=== PATIENT | male | born 1940 | race Caucasian/White ===

== ENCOUNTER 2019-06-14 23:32 | Inpatient (IN) | payer MEDICARE, OTHER ==
[2019-06-14] MEDS ORDERED: Cefepime 2 GM VIAL ONE (23:58)
[2019-06-14] MEDS ORDERED: Vancomycin 1 GM/200 ML BAG ONE (23:58)
[2019-06-15 00:12] LABS: Hemoglobin 16.6 g/dL (14.0-18.0); Mean Corpuscular HGB CONC 34.8 g/dL (32.0-36.0); Mean Corpuscular Hemoglobin 34.3 pg (27.0-31.0); Mean Corpuscular Volume 98.5 fL (78.0-98.0); Mean Platelet Volume 7.2 fL (7.4-10.4); Platelet Count 157 thou/uL (130-400); RBC Distribution Width 12.8 % (11.5-14.5); Red Blood Cell (RBC) Count 4.83 mill/uL (4.70-6.10); White Blood Cell (WBC) Count 9.8 thou/uL (4.8-10.8)
--- NOTE | 2019-06-15 00:34 | RAD ---
PORTABLE CHEST: 06/14/19 PROVIDED CLINICAL HISTORY: Chest pain. FINDINGS: Comparison 05/17/08. Cardiac silhouette remains enlarged. No focal consolidation, pleural fluid, or pneumothorax apparent. IMPRESSION: No evidence for an acute cardiopulmonary process. POS: [facility]
[2019-06-15 00:39] LABS: ALT (SGPT) 24 U/L (8-55); AST (SGOT) 31 U/L (5-34); Albumin 4.7 g/dL (3.4-4.8); Alkaline Phosphatase 88 U/L (40-110); Anion Gap 15 mmol/L (10-20); BUN (Urea Nitrogen) 18 mg/dL (8.4-25.7); Bilirubin, Total 0.8 mg/dL (0.2-1.2); Calc. Creatinine Clearance 0 mL/min (70-130); Calcium 9.6 mg/dL (7.8-10.44); Carbon Dioxide 25 mmol/L (23-31); Chloride 104 mmol/L (98-107); Estimated GFR-MDRD 66; Globulin 3.5 g/dL (2.4-3.5); Glucose 103 mg/dL (83-110); Protein, Total 8.2 g/dL (5.8-8.1); Sodium 139 mmol/L (136-145)
[2019-06-15 00:48] LABS: Band 6 % (5-11); Eosinophils 2 % (0-10); Lymphocytes 8 % (21-51); MDiff Complete? YES; Monocytes 4 % (0-10); Neutrophil 80 % (42-75); Platelet Morphology Comment Appears Adequate
[2019-06-15] MEDS ORDERED: Acetaminophen 500 MG TAB ONE (00:50)
[2019-06-15 01:20] LABS: Bilirubin Negative (Negative); Blood, Urine Negative (Negative); Clarity Clear (Clear); Glucose, Urine (Dipstick) Normal (Negative); Leukocyte Negative Leu/uL (Negative); Nitrite Negative (Negative); Protein, Urine (Dipstick) 10 mg/dL (Neg-Trace); Urobilinogen Normal mg/dL (Less than 2)
[2019-06-15] MEDS ORDERED: Lorazepam 2 MG/ML VIAL SLOW IVP SCH (03:15)
[2019-06-15] MEDS ORDERED: Lorazepam 2 MG/ML VIAL ONE (03:19)
[2019-06-15 03:46] LABS: Troponin I Less than 0.010 ng/mL (< 0.028)
[2019-06-15] MEDS ORDERED: Senokot S 8.6-50 MG TAB PO PRN (03:58)
[2019-06-15] MEDS ORDERED: HYDROcodone/Acetaminophen 5/325 mg Tablet PO PRN ×2 (03:58)
[2019-06-15] MEDS ORDERED: Ipratropium Oral Inhaler INH PRN (03:58)
[2019-06-15] MEDS ORDERED: Acetaminophen 650 MG Suppository PR PRN (03:58)
[2019-06-15] MEDS ORDERED: Ondansetron ODT 4 MG TAB PO PRN (03:58)
[2019-06-15] MEDS ORDERED: traMADol HCl 50 MG TAB PO PRN (03:58)
[2019-06-15] MEDS ORDERED: Ondansetron PF 4 MG/2 ML Vial IVP PRN (03:58)
[2019-06-15] MEDS ORDERED: PROVENTIL INHALER 6.7 G (200 INHALATIONS) INH PRN (03:58)
[2019-06-15] MEDS ORDERED: Azithromycin 500 MG in Sodium Chloride 0.9% 250 ML 250 ML IVPB SCH (04:30)
[2019-06-15 04:42] VITALS: BMI 32.4
--- NOTE | 2019-06-15 04:47 | HP ---
PRIMARY CARE PHYSICIAN: Dr. Rodriguez. CHIEF COMPLAINT: Shortness of breath. HISTORY OF PRESENT ILLNESS: This is an 78-year-old white male with a history of mild COPD and coronary artery disease with previous stent. The patient reports that he was in his normal state of health without any shortness of breath or other difficulties all yesterday and earlier this morning. He played golf yesterday with some friends, though they maintained their distance from each other. He did fine in the morning and then around noon time, he started to get a little short of breath over the course of the afternoon, and in the evening, he started to have more shortness of breath. He told the ER physician that he also had chest pain, to me he denied chest pain but reported some tightness in his chest. Started having some cough on and off as well, productive of clear sputum. The patient also started to get very anxious and worried that he might be getting COVID-19. He eventually started getting nauseated as well and then vomited at home after dinner and so called EMS. The patient was found to be mildly tachycardic and increased work of breathing by EMS. He has reportedly had a temperature to up to 102 per EMS. It was 100.8 when he got to the hospital. He was put on 3 L nasal cannula oxygen and his sats reportedly were low, though not listed how low and they came up to the mid 90s. In the ER, the patient continued to require oxygen, on 4 L now, again saturating 94%. Also very anxious and scared about what might be going on. He reports some nasal congestion and sinus congestion for the past three days, but otherwise no other symptoms until this afternoon. The patient did have a negative chest x-ray in the emergency room and negative troponin as well. He does have a COVID-19 swab sent and is being admitted to the hospital. REVIEW OF SYSTEMS: CONSTITUTIONAL: See HPI. EYES: No double vision or blurred vision. ENT: See HPI. No sore throat. CARDIOVASCULAR: See HPI. No palpitations or racing heart. PULMONARY: See HPI. GASTROINTESTINAL: Nausea and vomiting as above. Just a little bit nauseated right now. No abdominal pain. No diarrhea or constipation. GENITOURINARY: No dysuria or hematuria. MUSCULOSKELETAL: He has some chronic low back pain, but no new musculoskeletal complaints. SKIN: No rashes or other lesions he has noted. NEUROLOGIC: No numbness, tingling, or focal weakness. PAST MEDICAL HISTORY: 1. Coronary artery disease. 2. Hyperlipidemia. 3. Hypertension. 4. Arthritis. 5. Mild COPD with p.r.n. albuterol inhaler that he barely uses and never needed to be on oxygen. PAST SURGICAL HISTORY: 1. Coronary stent x1. 2. Left shoulder surgery x2. 3. Right shoulder surgery. 4. Right elbow surgery. PAST PSYCHIATRIC HISTORY: Anxiety, takes alprazolam daily as needed. SOCIAL HISTORY: The patient is a former tobacco user, smoked cigarettes, quit in the late . He drinks 2 to 3 ounces of alcohol per day. Has never had withdrawal symptoms when he stops. No illicit drug use. He is . He reports that he would not mind being intubated should he need that in a temporary fashion but does not want to have chest compressions or shocks or be otherwise resuscitated. Should he be incapacitated, his medical decision maker would be his , her name is Fanny Elliott. ALLERGIES: NO KNOWN DRUG ALLERGIES. CURRENT MEDICATIONS: 1. Alprazolam 0.5 mg daily as needed for anxiety. 2. Isosorbide mononitrate 60 mg daily. 3. Tramadol 50 mg twice a day as needed for pain. 4. Sertraline, unknown dose daily. 5. Fluticasone nasal spray to each nostril daily. 6. Seroquel, unknown dose daily. 7. Rosuvastatin, unknown dose daily. 8. Benazepril, unknown dose daily. 9. Incruse Ellipta inhaled twice a day. 10. Protonix 40 mg daily. 11. Tylenol as needed. 12. Vitamin D3 of 1000 units daily. 13. Aspirin 81 mg daily. 14. Fish oil 1200 mg daily. 15. MiraLAX as needed. 16. Nitroglycerin sublingual as needed. 17. Albuterol inhaler as needed for coughing, wheezing, and shortness of breath. PHYSICAL EXAMINATION: VITAL SIGNS: Blood pressure 132/78, pulse 97, respirations 25, O2 saturation 94% to 96% on 4 L nasal cannula, and temperature 100.8. GENERAL: This is a well-developed, well-nourished white male, who appears anxious and in mild respiratory distress. HEENT: Pupils are equal, round, and reactive to light. Oropharynx clear without lesions, erythema, or exudate. NECK: Supple. No lymphadenopathy. No thyroid nodules or enlargement. HEART: Regular rate and rhythm. No murmurs, rubs, or gallops. LUNGS: Clear to auscultation bilaterally. No wheezes, crackles, or rhonchi. The patient does have some mild tachypnea, but no accessory muscle use and he is saturating well on the oxygen currently. ABDOMEN: Soft, nontender to palpation. Normoactive bowel sounds. No hepatosplenomegaly or other masses. EXTREMITIES: No clubbing, cyanosis, or edema. SKIN: No rashes or other lesions noted. NEUROLOGIC: Intact strength and sensation in all extremities. No facial droop. PSYCHIATRIC: Alert and oriented x3. He does appear anxious but with normal judgment. LABORATORY DATA: CBC with a white blood cell count of 9.8 with 80% neutrophils, 6% bands, and only 8% lymphocytes. Complete metabolic panels within normal limits. Lactic acid was negative. Troponin was negative x1. Urinalysis was negative. Chest x-ray; I did review the chest x-ray done in the emergency room along with the radiologist's report. It does show no evidence of acute cardiopulmonary process. EKG done in the emergency room does show sinus tachycardia at 101 beats per minute with normal conduction, some left axis deviation, but there is no evidence of acute ischemic disease. ASSESSMENT: 1. Acute lower respiratory tract infection with fever and dyspnea and room-air hypoxia. Given the patient's lymphopenia and lack of infiltrates on the chest x-ray with no other identifiable source for his infection, there was concern for COVID infection. Flu test was negative in the emergency room. We will put the patient on respiratory droplet precautions and COVID test has already been sent. We will start the patient on azithromycin here in the emergency room. He was given cefepime and vancomycin; however, I do not see any evidence of bacterial infection or septicemia, so we will discontinue broad-spectrum antibiotics for right now. We will monitor the patient closely on telemetry for his oxygen requirement. The patient is a do not attempt resuscitation in general. However, after discussion with him about the possibility of progression of his hypoxia, he said he was okay with being on the ventilator temporarily. 2. Question of chest pain in the emergency room, he did deny this to me. Per ER physician, no evidence of acute changes on his EKG. His first troponin is negative, we will check two more. Given the patient's shortness of breath and nausea and vomiting, there is always possibility of pulmonary embolism. We will check a D-dimer to risk stratify him. Should this be elevated, then we can do a CT angio. 3. History of coronary artery disease. We will continue the patient's home medications. We will have to get an accurate list of his dosages and we will monitor and trend his troponins. 4. Hyperlipidemia. We will resume the patient's statin once we get his home med list. 5. Anxiety. The patient is still having some mild respiratory distress, however, this appears to be anxiety related. At this time, I will give him a small dose of IV Ativan here in the emergency room and then will give him p.r.n. Xanax on the floor and we will monitor for improvement. 6. Gastrointestinal prophylaxis. We will continue the patient's Protonix. 7. Deep venous thrombosis prophylaxis. We will put the patient on subcu Lovenox. CODE STATUS: The patient is an intubation only, otherwise do not resuscitate. His medical decision maker is his , Fanny Elliott. Job ID: [id number]
[2019-06-15 06:36] LABS: Troponin I Less than 0.010 ng/mL (< 0.028)
[2019-06-15] MEDS: Aspirin 81 mg Enteric Coated Tablet PO SCH (07:32)
[2019-06-15] MEDS: Enoxaparin Sodium 40 MG/0.4 ML SYRINGE SC SCH (07:33)
[2019-06-15] MEDS: Fluticasone Propionate Nasal Spray 16 gm Bottle NASAL SCH (07:33)
[2019-06-15] MEDS: ALPRAZolam 0.5 MG TAB PO PRN ×2 (10:17→19:49)
[2019-06-15] MEDS: Cefepime 1 GM in Sodium Chloride 0.9% 100 ML IVPB SCH (21:08)
[2019-06-16] MEDS: Albuterol 200 PUFF (6.7GM INHALER) INH PRN ×2 (00:03→00:26)
[2019-06-16] MEDS: Acetaminophen 325 MG TAB PO PRN (00:25)
[2019-06-16 05:53] LABS: Hemoglobin 15.3 g/dL (14.0-18.0); Mean Corpuscular HGB CONC 33.9 g/dL (32.0-36.0); Mean Corpuscular Hemoglobin 34.7 pg (27.0-31.0); RBC Distribution Width 12.8 % (11.5-14.5); Red Blood Cell (RBC) Count 4.41 mill/uL (4.70-6.10)
[2019-06-16 06:02] LABS: ALT (SGPT) 23 U/L (8-55); AST (SGOT) 28 U/L (5-34); Albumin 3.9 g/dL (3.4-4.8); Alkaline Phosphatase 63 U/L (40-110); Anion Gap 14 mmol/L (10-20); BUN (Urea Nitrogen) 14 mg/dL (8.4-25.7); CRP (Inflammatory) 18.37 mg/dL (= or < 0.5); Calc. Creatinine Clearance 94 mL/min (70-130); Calcium 8.8 mg/dL (7.8-10.44); Carbon Dioxide 22 mmol/L (23-31); Chloride 105 mmol/L (98-107); Estimated GFR-MDRD 83; Globulin 2.9 g/dL (2.4-3.5); Glucose 82 mg/dL (83-110); Magnesium 1.9 mg/dL (1.6-2.6); Phosphorus 3.2 mg/dL (2.3-4.7); Potassium 3.7 mmol/L (3.5-5.1); Protein, Total 6.8 g/dL (5.8-8.1); Sodium 137 mmol/L (136-145)
[2019-06-16 06:33] LABS: Band 14 % (5-11); Eosinophils 1 % (0-10); Lymphocytes 11 % (21-51); MDiff Complete? YES; Monocytes 5 % (0-10); Neutrophil 69 % (42-75); Platelet Count 120 thou/uL (130-400); White Blood Cell (WBC) Count 5.4 thou/uL (4.8-10.8)
[2019-06-16] MEDS: PROVENTIL INHALER 6.7 G (200 INHALATIONS) INH PRN (06:44)
[2019-06-16] MEDS: Folic Acid 1 MG TAB PO SCH (09:02)
[2019-06-16] MEDS: Cyanocobalamin (Vitamin B-12) 1,000 MCG TAB PO SCH (09:02)
[2019-06-16] MEDS: ALPRAZolam 0.5 MG TAB PO PRN ×2 (09:02→22:02)
[2019-06-16] MEDS: Aspirin 81 mg Enteric Coated Tablet PO SCH (09:02)
[2019-06-16] MEDS: Saccharomyces boulardii 250 MG CAP PO SCH (09:02)
[2019-06-16] MEDS: Multivit, Therapeutic 1 TAB PO SCH (09:02)
[2019-06-16] MEDS: Azithromycin 250 MG TAB PO SCH (09:02)
[2019-06-16] MEDS: Cefepime 1 GM in Sodium Chloride 0.9% 100 ML IVPB SCH ×2 (09:04→20:26)
[2019-06-16] MEDS: Fluticasone Propionate Nasal Spray 16 gm Bottle NASAL SCH (09:04)
[2019-06-16] MEDS: Enoxaparin Sodium 40 MG/0.4 ML SYRINGE SC SCH (09:04)
--- NOTE | 2019-06-16 13:20 | EKG ---
Test Reason : Blood Pressure : / mmHG Vent. Rate : 101 BPM Atrial Rate : 101 BPM P-R Int : 168 ms QRS Dur : 084 ms QT Int : 324 ms P-R-T Axes : 005 -22 074 degrees QTc Int : 420 ms Sinus tachycardia Septal infarct , age undetermined Abnormal ECG Confirmed by SERENITY PRICE ([id number]), art editor RUBIO FOUNTAIN ([id number]) on 06/16/2019 1:19:48 PM Referred By: Confirmed By:SERENITY Bazea
--- NOTE | 2019-06-16 14:01 | PDOC.HOSPP ---
- Subjective Encounter Date: 06/16/19 Encounter Time: 10:45 Subjective: Patient seen and examined for SOB/CP. SOB improving. No fever. No new complaints. No overnight events - Objective Vital Signs & Weight: Vital Signs (12 hours) Temp Pulse Resp BP Pulse Ox 06/16/19 12:00 96 06/16/19 11:37 97.7 F 79 32 H 107/61 97 06/16/19 08:00 98.4 F 84 32 H 128/77 96 06/16/19 07:45 98 06/16/19 07:39 92 L 06/16/19 06:44 102 H 32 H 82 L 06/16/19 04:00 96.0 F L 63 20 121/68 94 L Weight Weight 219 lb 14.4 oz I&O: 06/15/19 06/16/19 06/17/19 06:59 06:59 06:59 Intake Total 260 650 Output Total 700 Balance 260 -50 Result Diagrams: 06/16/19 04:45 06/16/19 04:45 Radiology Reviewed by me: Yes (CXR - no infiltrates on admission) EKG Reviewed by me: Yes (Tele SR) Hospitalist ROS - Review of Systems Respiratory: reports: cough. denies: dry, shortness of breath, hemoptysis, SOB with excertion, pleuritic pain, sputum, wheezing, other Cardiovascular: denies: chest pain, palpitations, orthopnea, paroxysmal noc. dyspnea, edema, light headedness, other - Medication Medications: Active Medications Generic Name Dose Route Start Last Admin Trade Name Freq PRN Reason Stop Dose Admin Acetaminophen 650 mg 06/15/19 03:58 06/16/19 00:25 Tylenol PO 650 mg Q4H PRN Administration Headache/Fever/Mild Pain (1-3) Albuterol Sulfate 2 puff 06/16/19 06:04 06/16/19 06:44 Proventil Hfa INH 2 puff Q2H PRN Administration SOB &/or Wheezing Alprazolam 0.5 mg 06/15/19 03:58 06/16/19 09:02 Xanax PO 0.5 mg BIDPRN PRN Administration Anxiety Aspirin 81 mg 06/15/19 09:00 06/16/19 09:02 Ecotrin PO 81 mg DAILY CASSANDRA Administration Azithromycin 250 mg 06/16/19 09:00 06/16/19 09:02 Zithromax PO 06/19/19 09:01 250 mg DAILY CASSANDRA Administration Cyanocobalamin 1,000 mcg 06/16/19 09:00 06/16/19 09:02 Vitamin B-12 PO 1,000 mcg DAILY CASSANDRA Administration Enoxaparin Sodium 40 mg 06/15/19 09:00 06/16/19 09:04 Lovenox SC 40 mg 0900 CASSANDRA Administration Fluticasone Propionate 0 gm 06/15/19 09:00 06/16/19 09:04 Flonase Nasal [place] NASAL 1 spr DAILY CASSANDRA Administration Folic Acid 1 mg 06/16/19 09:00 06/16/19 09:02 Folvite PO 1 mg DAILY CASSANDRA Administration Cefepime HCl 1 gm/ Sodium 100 mls @ 200 mls/hr 06/15/19 21:00 06/16/19 09:04 Chloride IVPB 100 mls Q12HR CASSANDRA Administration Isosorbide Mononitrate 60 mg 06/15/19 09:00 06/16/19 09:02 Imdur PO 60 mg DAILY CASSANDRA Administration Multivitamins 1 tab 06/16/19 09:00 06/16/19 09:02 Theragran PO 1 tab DAILY CASSANDRA Administration Pantoprazole Sodium 40 mg 06/15/19 09:00 06/16/19 09:04 Protonix PO 40 mg DAILY CASSANDRA Administration Saccharomyces Boulardii 250 mg 06/16/19 09:00 06/16/19 09:02 Florastor PO 250 mg DAILY CASSANDRA Administration Sertraline HCl 50 mg 06/15/19 09:00 06/16/19 09:03 Zoloft PO 50 mg DAILY CASSANDRA Administration Sodium Chloride 10 ml 06/16/19 09:00 06/16/19 09:06 Flush - Normal Saline IVF 10 ml Q12HR CASSANDRA Administration - Exam General Appearance: NAD Neck: supple, no JVD Heart: RRR, no gallops Respiratory: no wheezes, rhonchi Gastrointestinal: soft, non-tender, normal bowel sounds Extremities: no cyanosis Neurological: normal sensation to touch, no new deficit Psychiatric: A&O x 3 Hosp A/P - Plan DVT proph w/lovenox, DVT proph w/SCDs Sepsis/Acute hypoxic resp failure SOB/COPD exacerbation r/o COVID 19 HLD CAD CP - atypical Obesity BMI 32.5 PLAN: Cont O2 supp Cont MDIs PRN Cont Cefepime/Azithromycin Await COVID 19 Cont other meds as above
[2019-06-17] MEDS: Guaifenesin DM 100-10/5 ML UDCUP PO PRN ×2 (01:57→22:52)
[2019-06-17] MEDS: Acetaminophen 325 MG TAB PO PRN (04:16)
[2019-06-17 05:34] LABS: ALT (SGPT) 22 U/L (8-55); AST (SGOT) 28 U/L (5-34); Albumin 3.7 g/dL (3.4-4.8); Alkaline Phosphatase 59 U/L (40-110); Anion Gap 14 mmol/L (10-20); BUN (Urea Nitrogen) 15 mg/dL (8.4-25.7); Bilirubin, Total 0.8 mg/dL (0.2-1.2); Calc. Creatinine Clearance 108 mL/min (70-130); Calcium 8.8 mg/dL (7.8-10.44); Carbon Dioxide 22 mmol/L (23-31); Chloride 105 mmol/L (98-107); Estimated GFR-MDRD Greater than 90; Globulin 2.7 g/dL (2.4-3.5); Glucose 98 mg/dL (83-110); Potassium 3.6 mmol/L (3.5-5.1); Protein, Total 6.4 g/dL (5.8-8.1); Sodium 137 mmol/L (136-145)
[2019-06-17 05:37] LABS: Band 10 % (5-11); Eosinophils 1 % (0-10); Hemoglobin 14.2 g/dL (14.0-18.0); Lymphocytes 13 % (21-51); MDiff Complete? YES; Mean Corpuscular HGB CONC 33.3 g/dL (32.0-36.0); Mean Corpuscular Hemoglobin 33.1 pg (27.0-31.0); Mean Corpuscular Volume 99.5 fL (78.0-98.0); Mean Platelet Volume 7.2 fL (7.4-10.4); Monocytes 14 % (0-10); Neutrophil 62 % (42-75); Platelet Count 118 thou/uL (130-400); Platelet Morphology Comment Appears Decreased; RBC Distribution Width 12.7 % (11.5-14.5); Red Blood Cell (RBC) Count 4.29 mill/uL (4.70-6.10); White Blood Cell (WBC) Count 4.7 thou/uL (4.8-10.8)
[2019-06-17] MEDS: Cefepime 1 GM in Sodium Chloride 0.9% 100 ML IVPB SCH ×2 (08:56→20:04)
[2019-06-17] MEDS: Azithromycin 250 MG TAB PO SCH (08:56)
[2019-06-17] MEDS: Aspirin 81 mg Enteric Coated Tablet PO SCH (08:56)
[2019-06-17] MEDS: Enoxaparin Sodium 40 MG/0.4 ML SYRINGE SC SCH (08:57)
[2019-06-17] MEDS: Cyanocobalamin (Vitamin B-12) 1,000 MCG TAB PO SCH (08:57)
[2019-06-17] MEDS: Fluticasone Propionate Nasal Spray 16 gm Bottle NASAL SCH (08:57)
[2019-06-17] MEDS: Multivit, Therapeutic 1 TAB PO SCH (08:57)
[2019-06-17] MEDS: Folic Acid 1 MG TAB PO SCH (08:57)
[2019-06-17] MEDS: Saccharomyces boulardii 250 MG CAP PO SCH (08:58)
[2019-06-17] MEDS: PROVENTIL INHALER 6.7 G (200 INHALATIONS) INH PRN ×2 (09:11→22:52)
--- NOTE | 2019-06-17 16:57 | PDOC.HOSPP ---
- Subjective Encounter Date: 06/17/19 Encounter Time: 13:00 Subjective: The patient continues to report dry cough. SOB on exertion improved. NO runny nose, no sinus congestion, no sore throat, no myalgias. Patient wants to go home soon. - Objective Vital Signs & Weight: Vital Signs (12 hours) Temp Pulse Pulse Pulse Resp BP BP 06/17/19 15:56 96.4 F L 66 20 06/17/19 12:10 97.0 F L 68 22 H 06/17/19 11:15 66 69 115/65 131/74 06/17/19 09:11 65 18 06/17/19 09:00 06/17/19 08:55 97.2 F L 65 18 BP BP Pulse Ox 06/17/19 15:56 118/69 92 L 06/17/19 12:10 124/69 95 06/17/19 11:15 06/17/19 09:11 93 L 06/17/19 09:00 93 L 06/17/19 08:55 110/70 93 L Weight Weight 219 lb 14.4 oz I&O: 06/16/19 06/17/19 06/18/19 06:59 06:59 06:59 Intake Total 650 880 240 Output Total 700 775 650 Balance -50 105 -410 Result Diagrams: 06/17/19 04:44 06/17/19 04:44 Hospitalist ROS - Review of Systems Constitutional: denies: fever, chills - Medication Medications: Active Medications Generic Name Dose Route Start Last Admin Trade Name Freq PRN Reason Stop Dose Admin Acetaminophen 650 mg 06/15/19 03:58 06/17/19 04:16 Tylenol PO 650 mg Q4H PRN Administration Headache/Fever/Mild Pain (1-3) Albuterol Sulfate 2 puff 06/16/19 06:04 06/17/19 09:11 Proventil Hfa INH 2 puff Q2H PRN Administration SOB &/or Wheezing Alprazolam 0.5 mg 06/15/19 03:58 06/16/19 22:02 Xanax PO 0.5 mg BIDPRN PRN Administration Anxiety Aspirin 81 mg 06/15/19 09:00 06/17/19 08:56 Ecotrin PO 81 mg DAILY CASSANDRA Administration Azithromycin 250 mg 06/16/19 09:00 06/17/19 08:56 Zithromax PO 06/19/19 09:01 250 mg DAILY CASSANDRA Administration Cyanocobalamin 1,000 mcg 06/16/19 09:00 06/17/19 08:57 Vitamin B-12 PO 1,000 mcg DAILY CASSANDRA Administration Enoxaparin Sodium 40 mg 06/15/19 09:00 06/17/19 08:57 Lovenox SC 40 mg 0900 CASSANDRA Administration Fluticasone Propionate 0 gm 06/15/19 09:00 06/17/19 08:57 Flonase Nasal [place] NASAL 1 spr DAILY CASSANDRA Administration Folic Acid 1 mg 06/16/19 09:00 06/17/19 08:57 Folvite PO 1 mg DAILY CASSANDRA Administration Guaifenesin/Dextromethorphan 15 ml 06/15/19 03:58 06/17/19 01:57 Robitussin Dm PO 15 ml Q4H PRN Administration Cough Cefepime HCl 1 gm/ Sodium 100 mls @ 200 mls/hr 06/15/19 21:00 06/17/19 08:56 Chloride IVPB 100 mls Q12HR CASSANDRA Administration Isosorbide Mononitrate 60 mg 06/15/19 09:00 06/17/19 08:57 Imdur PO 60 mg DAILY CASSANDRA Administration Multivitamins 1 tab 06/16/19 09:00 06/17/19 08:57 Theragran PO 1 tab DAILY CASSANDRA Administration Pantoprazole Sodium 40 mg 06/15/19 09:00 06/17/19 08:58 Protonix PO 40 mg DAILY CASSANDRA Administration Saccharomyces Boulardii 250 mg 06/16/19 09:00 06/17/19 08:58 Florastor PO 250 mg DAILY CASSANDRA Administration Sertraline HCl 50 mg 06/15/19 09:00 06/17/19 08:58 Zoloft PO 50 mg DAILY CASSANDRA Administration Sodium Chloride 10 ml 06/16/19 09:00 06/17/19 08:58 Flush - Normal Saline IVF 10 ml Q12HR CASSANDRA Administration - Exam General Appearance: NAD, awake alert Eye: PERRL, anicteric sclera ENT: normocephalic atraumatic, no oropharyngeal lesions Neck: supple, no JVD Heart: RRR, no murmur, no gallops, no rubs Respiratory: CTAB, no wheezes, no rales, no ronchi Gastrointestinal: soft, non-tender, non-distended, normal bowel sounds, no splenomegaly Extremities: no cyanosis, no clubbing, no edema Skin: normal turgor, no lesions, no rashes Hosp A/P - Plan This is 78 year old male who presented with fever, dry cough, shortness of breath #Acute hypoxic respiratory failure possibly from viral URI vs bronchitis #COVID rule out #Leukopenia - currently on cefepime and azithromycin. Procal negative, ferritin elevated, d- dimer negative - chest XRay negative - given worsening leukopenia and thrombocytopenia, will repeat COVID test additional time after discussion with ID. First test negative #Thrombocytopenia - platelets downtrending. On lovenox, will monitor - could be secondary to infection Hypertension - continue imdur Depression - sertraline
[2019-06-17] MEDS: ALPRAZolam 0.5 MG TAB PO PRN (20:21)
[2019-06-18 05:13] LABS: ALT (SGPT) 22 U/L (8-55); AST (SGOT) 23 U/L (5-34); Albumin 3.7 g/dL (3.4-4.8); Alkaline Phosphatase 60 U/L (40-110); Anion Gap 12 mmol/L (10-20); BUN (Urea Nitrogen) 17 mg/dL (8.4-25.7); Bilirubin, Total 0.6 mg/dL (0.2-1.2); Calc. Creatinine Clearance 109 mL/min (70-130); Carbon Dioxide 27 mmol/L (23-31); Chloride 104 mmol/L (98-107); Estimated GFR-MDRD Greater than 90; Globulin 2.7 g/dL (2.4-3.5); Glucose 96 mg/dL (83-110); Potassium 3.4 mmol/L (3.5-5.1); Protein, Total 6.4 g/dL (5.8-8.1); Sodium 140 mmol/L (136-145)
[2019-06-18 05:45] LABS: Band 16 % (5-11); Eosinophils 5 % (0-10); Hemoglobin 13.9 g/dL (14.0-18.0); Lymphocytes 18 % (21-51); MDiff Complete? YES; Mean Corpuscular HGB CONC 34.8 g/dL (32.0-36.0); Mean Corpuscular Hemoglobin 34.6 pg (27.0-31.0); Mean Corpuscular Volume 99.2 fL (78.0-98.0); Mean Platelet Volume 6.9 fL (7.4-10.4); Monocytes 12 % (0-10); Neutrophil 49 % (42-75); Platelet Count 134 thou/uL (130-400); RBC Distribution Width 12.5 % (11.5-14.5); Red Blood Cell (RBC) Count 4.01 mill/uL (4.70-6.10); White Blood Cell (WBC) Count 3.9 thou/uL (4.8-10.8)
[2019-06-18] MEDS: Aspirin 81 mg Enteric Coated Tablet PO SCH (09:27)
[2019-06-18] MEDS: Multivit, Therapeutic 1 TAB PO SCH (09:27)
[2019-06-18] MEDS: Azithromycin 250 MG TAB PO SCH (09:28)
[2019-06-18] MEDS: Saccharomyces boulardii 250 MG CAP PO SCH (09:28)
[2019-06-18] MEDS: Folic Acid 1 MG TAB PO SCH (09:28)
[2019-06-18] MEDS: Enoxaparin Sodium 40 MG/0.4 ML SYRINGE SC SCH (09:28)
[2019-06-18] MEDS: Cyanocobalamin (Vitamin B-12) 1,000 MCG TAB PO SCH (09:28)
[2019-06-18] MEDS: Cefepime 1 GM in Sodium Chloride 0.9% 100 ML IVPB SCH ×2 (09:29→20:33)
[2019-06-18] MEDS: Fluticasone Propionate Nasal Spray 16 gm Bottle NASAL SCH (09:30)
--- NOTE | 2019-06-18 16:02 | PDOC.HOSPP ---
- Subjective Encounter Date: 06/18/19 Encounter Time: 16:01 Subjective: Mr. Elliott was seen today in follow-up COPD exacerbation. He says he is feeling a bit better. - Objective Vital Signs & Weight: Vital Signs (12 hours) Temp Pulse Resp BP Pulse Ox 06/18/19 11:12 97.8 F 72 22 H 115/69 94 L 06/18/19 09:22 98.0 F 64 22 H 133/67 93 L 06/18/19 04:32 98.4 F 67 18 125/65 92 L Weight Weight 213 lb 4.8 oz I&O: 06/17/19 06/18/19 06/19/19 06:59 06:59 06:59 Intake Total 880 2162 300 Output Total 775 2100 Balance 105 62 300 Result Diagrams: 06/18/19 04:19 06/18/19 04:19 Hospitalist ROS - Medication Medications: Active Medications Generic Name Dose Route Start Last Admin Trade Name Freq PRN Reason Stop Dose Admin Acetaminophen 650 mg 06/15/19 03:58 06/17/19 04:16 Tylenol PO 650 mg Q4H PRN Administration Headache/Fever/Mild Pain (1-3) Albuterol Sulfate 2 puff 06/16/19 06:04 06/17/19 22:52 Proventil Hfa INH 2 puff Q2H PRN Administration SOB &/or Wheezing Alprazolam 0.5 mg 06/15/19 03:58 06/17/19 20:21 Xanax PO 0.5 mg BIDPRN PRN Administration Anxiety Aspirin 81 mg 06/15/19 09:00 06/18/19 09:27 Ecotrin PO 81 mg DAILY CASSANDRA Administration Azithromycin 250 mg 06/16/19 09:00 06/18/19 09:28 Zithromax PO 06/19/19 09:01 250 mg DAILY CASSANDRA Administration Cyanocobalamin 1,000 mcg 06/16/19 09:00 06/18/19 09:28 Vitamin B-12 PO 1,000 mcg DAILY CASSANDRA Administration Enoxaparin Sodium 40 mg 06/15/19 09:00 06/18/19 09:28 Lovenox SC 40 mg 0900 CASSANDRA Administration Fluticasone Propionate 0 gm 06/15/19 09:00 06/18/19 09:30 Flonase Nasal [place] NASAL 1 spr DAILY CASSANDRA Administration Folic Acid 1 mg 06/16/19 09:00 06/18/19 09:28 Folvite PO 1 mg DAILY CASSANDRA Administration Guaifenesin/Dextromethorphan 15 ml 06/15/19 03:58 06/17/19 22:52 Robitussin Dm PO 15 ml Q4H PRN Administration Cough Cefepime HCl 1 gm/ Sodium 100 mls @ 200 mls/hr 06/15/19 21:00 06/18/19 09:29 Chloride IVPB 100 mls Q12HR CASSANDRA Administration Isosorbide Mononitrate 60 mg 06/15/19 09:00 06/18/19 09:27 Imdur PO 60 mg DAILY CASSANDRA Administration Multivitamins 1 tab 06/16/19 09:00 06/18/19 09:27 Theragran PO 1 tab DAILY CASSANDRA Administration Pantoprazole Sodium 40 mg 06/15/19 09:00 06/18/19 09:28 Protonix PO 40 mg DAILY CASSANDRA Administration Saccharomyces Boulardii 250 mg 06/16/19 09:00 06/18/19 09:28 Florastor PO 250 mg DAILY CASSANDRA Administration Senna/Docusate Sodium 2 tab 06/15/19 03:58 06/18/19 14:27 Senokot S PO 2 tab BIDPRN PRN Administration Constipation Sertraline HCl 50 mg 06/15/19 09:00 06/18/19 09:28 Zoloft PO 50 mg DAILY CASSANDRA Administration Sodium Chloride 10 ml 06/16/19 09:00 06/18/19 09:30 Flush - Normal Saline IVF 10 ml Q12HR CASSANDRA Administration - Exam Eye: PERRL Heart: RRR, no murmur, no gallops, no rubs, normal peripheral pulses Respiratory: rales (at the left base, and scattered wheeze) Gastrointestinal: soft, non-tender, non-distended, normal bowel sounds, no palpable masses, no hepatomegaly Extremities: no cyanosis, no edema Hosp A/P (1) COPD exacerbation Code(s): J44.1 - CHRONIC OBSTRUCTIVE PULMONARY DISEASE W (ACUTE) EXACERBATION Status: Acute (2) Acute and chronic respiratory failure Code(s): J96.20 - ACUTE AND CHR RESP FAILURE, UNSP W HYPOXIA OR HYPERCAPNIA Status: Acute (3) Hypertension Code(s): I10 - ESSENTIAL (PRIMARY) HYPERTENSION Status: Chronic (4) CAD (coronary artery disease) Code(s): I25.10 - ATHSCL HEART DISEASE OF [place] CORONARY ARTERY W/O ANG PCTRS Status: Chronic - Plan * Acute on chronic respiratory failure- slowly improving * Will re-start his home medication- Incruse * Continue Azithromycin and albuterol IH * HTN- blood pressure is stable * Still awaiting repeat COVID screen * [place] re-check a CXR to see his progress, and repeat CBC in the AM
[2019-06-18] MEDS ORDERED: Albuterol 200 PUFF (6.7GM INHALER) INH PRN (16:42)
--- NOTE | 2019-06-18 18:47 | RAD ---
AP CHEST: History: Cough Comparison: 06-14-2019 FINDINGS: Mild cardiomegaly. Mild vascular engorgement. No evidence of focal infiltrate although the left lung base is poorly evaluated due to soft tissue attenuation. No evidence of significant interval change. If there is concern for pneumonia, upright PA and lateral views should be obtained. IMPRESSION: As above. POS: AGW
[2019-06-18] MEDS: ALPRAZolam 0.5 MG TAB PO PRN (20:37)
[2019-06-19 05:00] LABS: #Basophils 0.1 thou/uL (0.0-0.2); #Eosinphils 0.1 thou/uL (0.0-0.7); #Lymphocytes 0.9 thou/uL (1.20-3.40); #Monocytes 0.5 thou/uL (0.11-0.59); #Neutrophils 2.4 thou/uL (1.40-6.50); %Basophils 1.5 % (0.0-1.0); %Eosinophils 3.2 % (0.0-10.0); %Lymphocytes 22.1 % (21.0-51.0); %Monocytes 12.2 % (0.0-10.0); Hemoglobin 14.2 g/dL (14.0-18.0); Mean Corpuscular HGB CONC 33.5 g/dL (32.0-36.0); Mean Corpuscular Hemoglobin 33.4 pg (27.0-31.0); Mean Corpuscular Volume 99.6 fL (78.0-98.0); Mean Platelet Volume 6.9 fL (7.4-10.4); Platelet Count 151 thou/uL (130-400); RBC Distribution Width 12.5 % (11.5-14.5); Red Blood Cell (RBC) Count 4.26 mill/uL (4.70-6.10); White Blood Cell (WBC) Count 3.9 thou/uL (4.8-10.8)
[2019-06-19] MEDS: ALPRAZolam 0.5 MG TAB PO PRN (05:14)
[2019-06-19] MEDS: Guaifenesin DM 100-10/5 ML UDCUP PO PRN (05:39)
[2019-06-19] MEDS ORDERED: INCRUSE ELLIPTA 62.5 MCG INH SCH (07:00)
[2019-06-19 08:53] LABS: Anion Gap 13 mmol/L (10-20); BUN (Urea Nitrogen) 15 mg/dL (8.4-25.7); Calc. Creatinine Clearance 106 mL/min (70-130); Calcium 9.3 mg/dL (7.8-10.44); Carbon Dioxide 28 mmol/L (23-31); Chloride 104 mmol/L (98-107); Estimated GFR-MDRD Greater than 90; Glucose 92 mg/dL (83-110); Potassium 3.8 mmol/L (3.5-5.1); Sodium 141 mmol/L (136-145)
[2019-06-19] MEDS: Cefepime 1 GM in Sodium Chloride 0.9% 100 ML IVPB SCH (09:17)
[2019-06-19] MEDS: Folic Acid 1 MG TAB PO SCH (09:18)
[2019-06-19] MEDS: Aspirin 81 mg Enteric Coated Tablet PO SCH (09:18)
[2019-06-19] MEDS: Saccharomyces boulardii 250 MG CAP PO SCH (09:24)
[2019-06-19] MEDS: Multivit, Therapeutic 1 TAB PO SCH (09:24)
[2019-06-19] MEDS: Cyanocobalamin (Vitamin B-12) 1,000 MCG TAB PO SCH (09:25)
[2019-06-19] MEDS: Fluticasone Propionate Nasal Spray 16 gm Bottle NASAL SCH (09:26)
[2019-06-19] MEDS: Azithromycin 250 MG TAB PO SCH (09:27)
[2019-06-19 09:30] VITALS: BP 146/69; TEMP 98.3
[2019-06-19] MEDS: Enoxaparin Sodium 40 MG/0.4 ML SYRINGE SC SCH (09:30)
--- NOTE | 2019-06-19 10:46 | PDOC.HOSPP ---
- Subjective Encounter Date: 06/19/19 Encounter Time: 10:42 Subjective: Mr. Elliott was seen today in follow-up of COPD exacerbation. He is breathing better. He does not have any new complaints. - Objective Vital Signs & Weight: Vital Signs (12 hours) Temp Pulse Resp BP BP BP Pulse Ox 06/19/19 09:29 98.3 F 65 18 146/69 H 93 L 06/19/19 05:14 96.7 F L 68 20 137/69 94 L 06/18/19 23:28 98.4 F 69 20 131/60 93 L Weight Weight 213 lb 4.8 oz I&O: 06/18/19 06/19/19 06/20/19 06:59 06:59 06:59 Intake Total 2162 790 Output Total 2100 600 375 Balance 62 190 -375 Result Diagrams: 06/19/19 04:45 06/19/19 08:20 Hospitalist ROS - Medication Medications: Active Medications Generic Name Dose Route Start Last Admin Trade Name Freq PRN Reason Stop Dose Admin Acetaminophen 650 mg 06/15/19 03:58 06/17/19 04:16 Tylenol PO 650 mg Q4H PRN Administration Headache/Fever/Mild Pain (1-3) Alprazolam 0.5 mg 06/15/19 03:58 06/19/19 05:14 Xanax PO 0.5 mg BIDPRN PRN Administration Anxiety Aspirin 81 mg 06/15/19 09:00 06/19/19 09:18 Ecotrin PO 81 mg DAILY CASSANDRA Administration Cyanocobalamin 1,000 mcg 06/16/19 09:00 06/19/19 09:25 Vitamin B-12 PO 1,000 mcg DAILY CASSANDRA Administration Enoxaparin Sodium 40 mg 06/15/19 09:00 06/19/19 09:30 Lovenox SC 40 mg 0900 CASSANDRA Administration Fluticasone Propionate 0 gm 06/15/19 09:00 06/19/19 09:26 Flonase Nasal [place] NASAL 1 spr DAILY CASSANDRA Administration Folic Acid 1 mg 06/16/19 09:00 06/19/19 09:18 Folvite PO 1 mg DAILY CASSANDRA Administration Guaifenesin/Dextromethorphan 15 ml 06/15/19 03:58 06/19/19 05:39 Robitussin Dm PO 15 ml Q4H PRN Administration Cough Cefepime HCl 1 gm/ Sodium 100 mls @ 200 mls/hr 06/15/19 21:00 06/19/19 09:17 Chloride IVPB 100 mls Q12HR CASSANDRA Administration Isosorbide Mononitrate 60 mg 06/15/19 09:00 06/19/19 09:24 Imdur PO 60 mg DAILY CASSANDRA Administration Multivitamins 1 tab 06/16/19 09:00 06/19/19 09:24 Theragran PO 1 tab DAILY CASSANDRA Administration Pantoprazole Sodium 40 mg 06/15/19 09:00 06/19/19 09:24 Protonix PO 40 mg DAILY CASSANDRA Administration Saccharomyces Boulardii 250 mg 06/16/19 09:00 06/19/19 09:24 Florastor PO 250 mg DAILY CASSANDRA Administration Senna/Docusate Sodium 2 tab 06/15/19 03:58 06/18/19 14:27 Senokot S PO 2 tab BIDPRN PRN Administration Constipation Sertraline HCl 50 mg 06/15/19 09:00 06/19/19 09:18 Zoloft PO 50 mg DAILY CASSANDRA Administration Sodium Chloride 10 ml 06/16/19 09:00 06/19/19 09:28 Flush - Normal Saline IVF 10 ml Q12HR CASSANDRA Administration - Exam Eye: PERRL, anicteric sclera Heart: RRR, no murmur, no gallops, no rubs, normal peripheral pulses Respiratory: CTAB (with the exception of an occasional wheeze) Gastrointestinal: soft, non-tender, non-distended, normal bowel sounds, no palpable masses, no hepatomegaly Extremities: no cyanosis, no edema Hosp A/P (1) COPD exacerbation Code(s): J44.1 - CHRONIC OBSTRUCTIVE PULMONARY DISEASE W (ACUTE) EXACERBATION Status: Acute (2) Acute and chronic respiratory failure Code(s): J96.20 - ACUTE AND CHR RESP FAILURE, UNSP W HYPOXIA OR HYPERCAPNIA Status: Acute (3) Hypertension Code(s): I10 - ESSENTIAL (PRIMARY) HYPERTENSION Status: Chronic (4) CAD (coronary artery disease) Code(s): I25.10 - ATHSCL HEART DISEASE OF [place] CORONARY ARTERY W/O ANG PCTRS Status: Chronic - Plan * Acute on chronic respiratory failure- improved * He has completed a full course of Azithromycin * His second COVID screen was negative * Repeat CXR was negative for infiltrate * Stable for discharge home.
--- NOTE | 2019-06-19 11:28 | DIS ---
DATE OF ADMISSION: 06/15/2019 DATE OF DISCHARGE: 06/19/2019 PRIMARY CARE PHYSICIAN: Teto Nash MD DISCHARGE DIAGNOSES: 1. Acute on chronic respiratory failure with hypoxemia. 2. Chronic obstructive pulmonary disease exacerbation. 3. Coronary artery disease. 4. Hyperlipidemia. 5. Hypertension. DISCHARGE MEDICATIONS: Include; 1. Omnicef 300 mg p.o. b.i.d. . 2. Florastor 250 mg daily. 3. Incruse inhaler 62.5 mcg inhaled daily. 4. Tramadol 50 mg q.i.d. as needed. 5. Sertraline 150 mg daily. 6. Crestor 40 mg at bedtime. 7. Seroquel 50 mg q.a.m. and 25 mg daily. 8. Protonix 40 mg daily. 9. Isosorbide mononitrate 60 mg daily. 10. Atrovent inhaler two puffs b.i.d. 11. Flonase nasal spray two sprays in each nostril daily. 12. Famotidine 20 mg twice daily. 13. Fish oil 1200 mg daily. 14. Lotensin 5 mg at bedtime. 15. Atorvastatin 80 mg daily. 16. Aspirin 162 mg at bedtime. 17. Amlodipine 5 mg daily. 18. Alprazolam 0.5 p.r.n. 19. ProAir inhaler p.r.n. 20. Tylenol 500 mg as needed. CODE STATUS: Intubate only. ALLERGIES: NO KNOWN DRUG ALLERGIES. HOSPITAL COURSE: Mr. Elliott is a pleasant 78-year-old gentleman, who presented to the emergency room, complaining of difficulty breathing. He also had some fever. He was concerned about that he had gotten exposed to COVID-19. He was admitted to the hospital and started on IV antibiotics including azithromycin. A COVID screen was obtained and it was negative on 06/15/2019. However, a repeat was done due to some concerns for hypoxemia and leukopenia. The repeat scan was also negative and a repeat chest x-ray was also done, which did not show any infiltrates. He was noticed improvement. By the time of discharge, he was ambulating and his O2 sats were ranging from 89% to 92% and maintaining. He was ready to go home and as such, he will be discharged home when he has completed the full dose of the azithromycin and will continue with Omnicef for few more days post discharge and to follow up with Dr. Nash as soon as reasonably possible. Job ID: [id number]
--- NOTE | 2019-06-19 13:09 | PQF ---
CLINICAL DOCUMENTATION IMPROVEMENT CLARIFICATION FORM: ICD-10 Updated PLEASE DO AN ADDENDUM TO THE PROGRESS NOTE WITH ANY DOCUMENTATION UPDATES OR ADDITIONS AND CARRY THROUGH TO DC SUMMARY. THANK YOU. DATE: 06/19/2019 ATTN: Dr. Soto Please exercise your independent, professional judgment in responding to the clarification form. Clinical indicators are provided on the bottom of this form for your review Please check appropriate box(s) to clarify if the following diagnosis has been ruled in or ruled out: SEPSIS [ ] Ruled in diagnosis [ ] Continue to treat [ ] Resolved [x ] Ruled out diagnosis [ ] Improving [ ] Cannot rule out diagnosis [ ] Other diagnosis [ ] Unable to determine In addition, please specify: Present on Admission (POA): [ ] Yes [ ] No [ ] Unable to determine For continuity of documentation, please document condition throughout progress notes and discharge summary. Thank You. CLINICAL INDICATORS - SIGNS / SYMPTOMS / LABS / RESULTS AND LOCATION IN MR H&P 06/14: BP 132/78, Pulse 97, Resp. 25, O2 sat 94% to 96% on 4L nc and Temp. 100.8 06/15 (Ladha) Sepsis/ Acute hypoxic resp failure SOB/ COPD exacerbation 06/16 (Yessi) Leukopenia 06/18 (Charles) Acute on chronic respiratory failure - improved His second Covid screen was negative RISKS: H&P 06/14: Hx of mild COPD and CAD. 06/15 (Ladha) Sepsis/ Acute hypoxic resp failure. SOB/ COPD exacerbation TREATMENT: Order 06/14: Cefepime 1 gm IV q 12 hr. Order 06/14-06/18: Zithromax 250 mg po daily Thank you, Kay (This form is maintained as a part of the permanent medical record) 2014 [employer]. All Rights Reserved Kay Cabral RN, BSN [email or web address]
== END 2019-06-19 12:27 | disposition home or self-care (01) | DRG 189 ==
LOC: ERS 23:32 → 2SW 06-15 02:22
PROVIDERS: ADMIT Emergency Medicine; ATTEND Emergency Medicine
PROC: 8E0ZXY6 Isolation (ICD-10-PCS; principal; 2019-06-15)
DX: J96.21 Acute and chronic respiratory failure with hypoxia (principal); J44.1 Chronic obstructive pulmonary disease with (acute) exacerbation; I25.10 Atherosclerotic heart disease of native coronary artery without angina pectoris; Z20.828 Contact with and (suspected) exposure to other viral communicable diseases; E78.5 Hyperlipidemia, unspecified; I10 Essential (primary) hypertension; M19.90 Unspecified osteoarthritis, unspecified site; F41.9 Anxiety disorder, unspecified; R07.89 Other chest pain; F32.9 Major depressive disorder, single episode, unspecified; Z87.891 Personal history of nicotine dependence
CPT/HCPCS: 36415; 71045; 80048; 80053; 81003; 82728; 83605; 83735; 84100; 84145; 84484; 85007; 85025; 85027; 85379; 86140; 87040; 87086; 87633; 87635; 87804; 93005; 94664; 94760; 96361; 96365; 96367; 96375; J0456; J0692; J1650; J2060; J3370; J3490; J7050; U0002

== ENCOUNTER 2021-01-09 13:07 | Outpatient (CLI) | payer MEDICARE, OTHER | END 2021-01-09 13:08 | disposition home or self-care (01) | LOC: BICMRI 13:07 | PROVIDERS: ATTEND Student in an Organized Health Care Education/Training Program | DX: H90.5 Unspecified sensorineural hearing loss (principal) | CPT/HCPCS: 82565 ==

== ENCOUNTER 2021-03-15 03:20 | Inpatient (IN) | payer MEDICARE, OTHER ==
[2021-03-15] MEDS ORDERED: Ibuprofen 800 MG TAB ONE (03:34)
[2021-03-15] MEDS ORDERED: Acetaminophen 500 MG TAB ONE (03:34)
[2021-03-15] MEDS ORDERED: Cefepime 2 GM VIAL ONE (03:35)
[2021-03-15 04:19] LABS: ALT (SGPT) 25 U/L (8-55); AST (SGOT) 28 U/L (5-34); Albumin 4.3 g/dL (3.4-4.8); Alkaline Phosphatase 99 U/L (40-110); Anion Gap 17 mmol/L (10-20); BUN (Urea Nitrogen) 21 mg/dL (8.4-25.7); Calc. Creatinine Clearance 0 mL/min (70-130); Calcium 9.4 mg/dL (7.8-10.44); Carbon Dioxide 21 mmol/L (23-31); Chloride 101 mmol/L (98-107); Globulin 3.2 g/dL (2.4-3.5); Glucose 105 mg/dL (83-110); Potassium 4.1 mmol/L (3.5-5.1); Protein, Total 7.5 g/dL (5.8-8.1); Sodium 135 mmol/L (136-145)
[2021-03-15 04:48] LABS: #Lymphocytes 0.4 thou/uL (1.20-3.40); #Monocytes 0.4 thou/uL (0.11-0.59); #Neutrophils 5.2 thou/uL (1.40-6.50); %Basophils 0.2 % (0.0-1.0); %Eosinophils 0.2 % (0.0-10.0); %Lymphocytes 5.9 % (21.0-51.0); %Monocytes 7.1 % (0.0-10.0); %Neutrophils 86.6 % (42.0-75.0); Hemoglobin 15.7 g/dL (14.0-18.0); Mean Corpuscular HGB CONC 34.9 g/dL (32.0-36.0); Mean Corpuscular Hemoglobin 33.5 pg (27.0-31.0); Mean Corpuscular Volume 95.8 fL (78.0-98.0); Mean Platelet Volume 6.9 fL (7.4-10.4); Platelet Count 139 thou/uL (130-400); RBC Distribution Width 12.9 % (11.5-14.5); Red Blood Cell (RBC) Count 4.68 mill/uL (4.70-6.10)
[2021-03-15] MEDS ORDERED: Vancomycin 1 GM/200 ML BAG ONE (05:02)
[2021-03-15 05:18] LABS: SARS-CoV-2 NAA Rapid Test Not Detected (NotDetected)
[2021-03-15] MEDS ORDERED: Ondansetron PF 4 MG/2 ML Vial IVP PRN (07:27)
[2021-03-15] MEDS ORDERED: Ondansetron ODT 4 MG TAB PO PRN (07:28)
[2021-03-15] MEDS ORDERED: Acetaminophen 325 MG TAB PO PRN (07:28)
[2021-03-15] MEDS: Sodium Chloride 0.9% 1,000 ML IV SCH ×2 (09:18→15:18)
[2021-03-15] MEDS ORDERED: ALPRAZolam 0.5 MG TAB PO PRN (09:29)
[2021-03-15] MEDS ORDERED: Nitroglycerin 4.9 GM Bottle PO PRN (09:29)
[2021-03-15] MEDS ORDERED: Polyethylene Glycol 3350 17 GM Packet PO SCH (10:00)
[2021-03-15] MEDS ORDERED: Docusate 100 MG CAP PO SCH (10:00)
[2021-03-15 10:25] LABS: Bacteria/HPF None Seen HPF (None Seen); RBC/HPF 0-3 HPF (0-3); Squamous Epithelial 0-3 HPF (0-3)
[2021-03-15] MEDS ORDERED: cefTRIAXone\\ROCEPHIN 1 GM in Sodium Chloride 0.9% 100 ML IVPB SCH (11:00)
[2021-03-15 12:24] VITALS: BMI 29.3
[2021-03-15] MEDS ORDERED: Fleet Enema 133 ML BOT PR PRN (19:54)
[2021-03-15] MEDS: Famotidine 20 MG TAB PO SCH (20:26)
[2021-03-15] MEDS: Lisinopril 5 MG TAB PO SCH (20:26)
[2021-03-15] MEDS: Aspirin 81 mg Enteric Coated Tablet PO SCH (20:26)
[2021-03-15] MEDS: Ipratropium Oral Inhaler INH SCH (20:37)
[2021-03-15] MEDS ORDERED: Non-Formulary Item 1 EACH (Cholecalciferol (Vitamin D3) [Vitamin D3] 1,000 UNIT Capsule) PO SCH (21:00)
[2021-03-16 04:58] LABS: #Lymphocytes 0.6 thou/uL (1.20-3.40); #Monocytes 0.7 thou/uL (0.11-0.59); #Neutrophils 3.4 thou/uL (1.40-6.50); %Basophils 0.4 % (0.0-1.0); %Eosinophils 0.7 % (0.0-10.0); %Lymphocytes 13.3 % (21.0-51.0); %Monocytes 14.1 % (0.0-10.0); %Neutrophils 71.4 % (42.0-75.0); Hemoglobin 13.8 g/dL (14.0-18.0); Mean Corpuscular HGB CONC 31.8 g/dL (32.0-36.0); Mean Corpuscular Hemoglobin 31.9 pg (27.0-31.0); Mean Platelet Volume 6.7 fL (7.4-10.4); Platelet Count 114 thou/uL (130-400); RBC Distribution Width 13.3 % (11.5-14.5); Red Blood Cell (RBC) Count 4.31 mill/uL (4.70-6.10); White Blood Cell (WBC) Count 4.7 thou/uL (4.8-10.8)
[2021-03-16 05:24] LABS: Anion Gap 16 mmol/L (10-20); BUN (Urea Nitrogen) 20 mg/dL (8.4-25.7); Calc. Creatinine Clearance 63 mL/min (70-130); Calcium 9.1 mg/dL (7.8-10.44); Carbon Dioxide 19 mmol/L (23-31); Chloride 105 mmol/L (98-107); Glucose 85 mg/dL (83-110); Sodium 136 mmol/L (136-145)
[2021-03-16] MEDS: Ipratropium Oral Inhaler INH SCH (06:53)
[2021-03-16] MEDS ORDERED: Fluticasone Propionate Nasal Spray 16 gm Bottle NASAL SCH (09:00)
[2021-03-16] MEDS ORDERED: Non-Formulary Item 1 EACH (Umeclidinium Bromide [Incruse Ellipta] 62.5 MCG Blst.W.Dev) INH SCH (09:00)
[2021-03-16] MEDS ORDERED: Non-Formulary Item 1 EACH (Atorvastatin Calcium [Atorvastatin Calcium] 80 MG Tablet) PO SCH (09:00)
[2021-03-16] MEDS: Polyethylene Glycol 3350 17 GM Packet PO SCH (09:04)
[2021-03-16] MEDS: Docusate 100 MG CAP PO SCH (09:05)
[2021-03-16] MEDS: Famotidine 20 MG TAB PO SCH ×2 (09:05→20:46)
[2021-03-16] MEDS: Atorvastatin Calcium 40 MG TAB PO SCH (09:05)
[2021-03-16] MEDS: Amlodipine 5 MG TAB PO SCH (09:05)
[2021-03-16] MEDS: Cholecalciferol 1,000 UNITS (25 MCG) TAB PO SCH ×2 (09:05→20:46)
[2021-03-16] MEDS: cefTRIAXone\\ROCEPHIN 2 GM in Sodium Chloride 0.9% 100 ML IVPB SCH (09:06)
[2021-03-16] MEDS: Fluticasone Propionate Nasal Spray 16 gm Bottle NASAL SCH (09:18)
[2021-03-16] MEDS ORDERED: traMADol HCl 50 MG TAB PO PRN (09:30)
[2021-03-16] MEDS ORDERED: Albuterol 200 PUFF (6.7GM INHALER) INH SCH (10:45)
[2021-03-16] MEDS: Ipratropium Bromide 2.5 ml Neb NEB SCH ×3 (12:45→22:06)
[2021-03-16] MEDS ORDERED: Non-Formulary Item 1 EACH (Albuterol Sulfate [Proair Hfa] 8.5 GM Hfa.Aer.Ad) PO SCH (13:00)
[2021-03-16] MEDS: Aspirin 81 mg Enteric Coated Tablet PO SCH (20:47)
[2021-03-16] MEDS: Rosuvastatin 20 MG TAB PO SCH (20:48)
[2021-03-16] MEDS ORDERED: Lisinopril 5 MG TAB PO SCH (21:00)
[2021-03-17 06:16] LABS: #Basophils 0.1 thou/uL (0.0-0.2); #Eosinphils 0.1 thou/uL (0.0-0.7); #Monocytes 0.7 thou/uL (0.11-0.59); %Basophils 1.1 % (0.0-1.0); %Eosinophils 2.7 % (0.0-10.0); %Lymphocytes 20.3 % (21.0-51.0); %Monocytes 14.5 % (0.0-10.0); %Neutrophils 61.4 % (42.0-75.0); Hemoglobin 14.3 g/dL (14.0-18.0); Mean Corpuscular HGB CONC 34.5 g/dL (32.0-36.0); Mean Corpuscular Hemoglobin 33.9 pg (27.0-31.0); Mean Corpuscular Volume 98.3 fL (78.0-98.0); Mean Platelet Volume 7.7 fL (7.4-10.4); Platelet Count 128 thou/uL (130-400); RBC Distribution Width 13.3 % (11.5-14.5); Red Blood Cell (RBC) Count 4.21 mill/uL (4.70-6.10); White Blood Cell (WBC) Count 4.9 thou/uL (4.8-10.8)
[2021-03-17 06:46] LABS: Anion Gap 15 mmol/L (10-20); BUN (Urea Nitrogen) 22 mg/dL (8.4-25.7); CRP (Inflammatory) 13.82 mg/dL (= or < 0.5); Calc. Creatinine Clearance 66 mL/min (70-130); Calcium 9.3 mg/dL (7.8-10.44); Carbon Dioxide 21 mmol/L (23-31); Chloride 105 mmol/L (98-107); Glucose 93 mg/dL (83-110); Magnesium 2.1 mg/dL (1.6-2.6); Phosphorus 3.4 mg/dL (2.3-4.7); Potassium 3.7 mmol/L (3.5-5.1); Sodium 137 mmol/L (136-145)
[2021-03-17] MEDS: Ipratropium Bromide 2.5 ml Neb NEB SCH ×4 (06:48→22:04)
[2021-03-17] MEDS ORDERED: Non-Formulary Item 1 EACH (Tiotropium Bromide 4 GM Inhaler) PO SCH (09:00)
[2021-03-17] MEDS: Famotidine 20 MG TAB PO SCH ×2 (09:09→21:22)
[2021-03-17] MEDS: Atorvastatin Calcium 40 MG TAB PO SCH (09:10)
[2021-03-17] MEDS: Cholecalciferol 1,000 UNITS (25 MCG) TAB PO SCH ×2 (09:10→21:21)
[2021-03-17] MEDS: Saccharomyces boulardii 250 MG CAP PO SCH (09:11)
[2021-03-17] MEDS: Docusate 100 MG CAP PO SCH (09:11)
[2021-03-17] MEDS: Amlodipine 5 MG TAB PO SCH (09:11)
[2021-03-17] MEDS: Enoxaparin Sodium 40 MG/0.4 ML SYRINGE SC SCH (09:12)
[2021-03-17] MEDS: Polyethylene Glycol 3350 17 GM Packet PO SCH ×2 (09:12)
[2021-03-17] MEDS: cefTRIAXone\\ROCEPHIN 2 GM in Sodium Chloride 0.9% 100 ML IVPB SCH (09:53)
[2021-03-17] MEDS: Fluticasone Propionate Nasal Spray 16 gm Bottle NASAL SCH (09:53)
[2021-03-17] MEDS: Lisinopril 5 MG TAB PO SCH (21:21)
[2021-03-17] MEDS: Rosuvastatin 20 MG TAB PO SCH (21:22)
[2021-03-17] MEDS: Aspirin 81 mg Enteric Coated Tablet PO SCH (21:22)
[2021-03-18 05:54] LABS: #Eosinphils 0.1 thou/uL (0.0-0.7); #Lymphocytes 1.1 thou/uL (1.20-3.40); #Monocytes 0.7 thou/uL (0.11-0.59); #Neutrophils 2.9 thou/uL (1.40-6.50); %Basophils 0.7 % (0.0-1.0); %Eosinophils 2.4 % (0.0-10.0); %Lymphocytes 22.4 % (21.0-51.0); %Monocytes 14.9 % (0.0-10.0); %Neutrophils 59.7 % (42.0-75.0); Hemoglobin 14.2 g/dL (14.0-18.0); Mean Corpuscular HGB CONC 34.1 g/dL (32.0-36.0); Mean Corpuscular Hemoglobin 33.3 pg (27.0-31.0); Mean Corpuscular Volume 97.7 fL (78.0-98.0); Mean Platelet Volume 6.5 fL (7.4-10.4); Platelet Count 166 thou/uL (130-400); RBC Distribution Width 13.1 % (11.5-14.5); Red Blood Cell (RBC) Count 4.26 mill/uL (4.70-6.10); White Blood Cell (WBC) Count 4.8 thou/uL (4.8-10.8)
[2021-03-18 06:20] LABS: Anion Gap 14 mmol/L (10-20); BUN (Urea Nitrogen) 18 mg/dL (8.4-25.7); Calc. Creatinine Clearance 69 mL/min (70-130); Calcium 9.6 mg/dL (7.8-10.44); Carbon Dioxide 24 mmol/L (23-31); Chloride 104 mmol/L (98-107); Glucose 94 mg/dL (83-110); Magnesium 2.1 mg/dL (1.6-2.6); Phosphorus 4.2 mg/dL (2.3-4.7); Potassium 3.7 mmol/L (3.5-5.1); Sodium 138 mmol/L (136-145)
[2021-03-18] MEDS: Ipratropium Bromide 2.5 ml Neb NEB SCH ×2 (07:32→13:13)
[2021-03-18] MEDS ORDERED: Milk Of Magnesia 30 ML UDCUP PO SCH (09:00)
[2021-03-18] MEDS: Amlodipine 5 MG TAB PO SCH (10:15)
[2021-03-18] MEDS: Atorvastatin Calcium 40 MG TAB PO SCH (10:16)
[2021-03-18] MEDS: Saccharomyces boulardii 250 MG CAP PO SCH (10:16)
[2021-03-18] MEDS: Docusate 100 MG CAP PO SCH (10:17)
[2021-03-18] MEDS: Cholecalciferol 1,000 UNITS (25 MCG) TAB PO SCH (10:18)
[2021-03-18] MEDS: Enoxaparin Sodium 40 MG/0.4 ML SYRINGE SC SCH (10:18)
[2021-03-18] MEDS: Polyethylene Glycol 3350 17 GM Packet PO SCH ×2 (10:18)
[2021-03-18] MEDS: cefTRIAXone\\ROCEPHIN 2 GM in Sodium Chloride 0.9% 100 ML IVPB SCH (10:19)
[2021-03-18] MEDS: Fluticasone Propionate Nasal Spray 16 gm Bottle NASAL SCH (10:19)
[2021-03-18] MEDS: Famotidine 20 MG TAB PO SCH (10:19)
[2021-03-18 11:38] VITALS: TEMP 98
[2021-03-18] MEDS ORDERED: Ciprofloxacin 500 MG TAB PO SCH (14:00)
[2021-03-18 16:02] VITALS: BP 133/78
== END 2021-03-18 16:08 | disposition home or self-care (01) | DRG 689 ==
LOC: ERS 03:20 → T4-A 06:14
PROVIDERS: ADMIT Emergency Medicine; ATTEND Family Medicine
DX: N30.01 Acute cystitis with hematuria (principal); G93.41 Metabolic encephalopathy; Z20.822 Contact with and (suspected) exposure to COVID-19; I25.10 Atherosclerotic heart disease of native coronary artery without angina pectoris; I10 Essential (primary) hypertension; E78.5 Hyperlipidemia, unspecified; J44.9 Chronic obstructive pulmonary disease, unspecified; F32.A Depression, unspecified; K21.9 Gastro-esophageal reflux disease without esophagitis; E66.9 Obesity, unspecified; E78.00 Pure hypercholesterolemia, unspecified; M19.90 Unspecified osteoarthritis, unspecified site; R41.3 Other amnesia; F41.9 Anxiety disorder, unspecified; K59.00 Constipation, unspecified; Z79.899 Other long term (current) drug therapy; Z79.891 Long term (current) use of opiate analgesic; Z79.82 Long term (current) use of aspirin; Z95.5 Presence of coronary angioplasty implant and graft; Z87.891 Personal history of nicotine dependence
CPT/HCPCS: 36415; 71045; 76770; 80048; 80053; 81015; 83605; 83735; 84100; 85025; 86140; 87040; 87086; 87804; 94640; J0692; J0696; J1650; J3370; J3490; J7050; J7620; U0002

== ENCOUNTER 2021-09-14 12:04 | Emergency (ER) | payer MEDICARE, OTHER ==
[2021-09-14 13:04] LABS: #Eosinphils 0.1 thou/uL (0.0-0.7); #Lymphocytes 1.3 thou/uL (1.20-3.40); #Monocytes 0.5 thou/uL (0.11-0.59); %Basophils 0.6 % (0.0-1.0); %Eosinophils 1.2 % (0.0-10.0); %Lymphocytes 26.1 % (21.0-51.0); %Monocytes 11.2 % (0.0-10.0); Hemoglobin 14.3 g/dL (14.0-18.0); Mean Corpuscular HGB CONC 33.4 g/dL (32.0-36.0); Mean Corpuscular Hemoglobin 33.7 pg (27.0-31.0); Mean Platelet Volume 6.9 fL (7.4-10.4); Platelet Count 155 thou/uL (130-400); Red Blood Cell (RBC) Count 4.25 mill/uL (4.70-6.10); White Blood Cell (WBC) Count 4.8 thou/uL (4.8-10.8)
[2021-09-14 13:36] LABS: ALT (SGPT) 16 U/L (8-55); AST (SGOT) 14 U/L (5-34); Albumin 3.9 g/dL (3.4-4.8); Alkaline Phosphatase 71 U/L (40-110); Anion Gap 12 mmol/L (10-20); BUN (Urea Nitrogen) 21 mg/dL (8.4-25.7); Bilirubin, Total 0.5 mg/dL (0.2-1.2); Calc. Creatinine Clearance 0 mL/min (70-130); Calcium 9.1 mg/dL (7.8-10.44); Carbon Dioxide 23 mmol/L (23-31); Chloride 107 mmol/L (98-107); Estimated GFR 76; Globulin 2.8 g/dL (2.4-3.5); Glucose 117 mg/dL (83-110); Potassium 4.1 mmol/L (3.5-5.1); Protein, Total 6.7 g/dL (5.8-8.1); Sodium 138 mmol/L (136-145)
== END 2021-09-14 15:21 | disposition home or self-care (01) ==
LOC: ERS 12:04
DX: R55 Syncope and collapse (principal); E78.5 Hyperlipidemia, unspecified; I10 Essential (primary) hypertension; Z87.891 Personal history of nicotine dependence; Z79.899 Other long term (current) drug therapy
CPT/HCPCS: 36415; 70450; 80053; 83880; 84484; 85025; 93005; 96360